=== PATIENT | female | born 1985 | race Caucasian/White ===

== ENCOUNTER 2016-12-08 06:09 | Emergency (ER) | payer MEDICAID ==
[~2016-12-08] VITALS: Ht 165.1 cm; Wt 68.0 kg
[2016-12-08 06:11] VITALS: BP 146/98; PULSE 84; RESP 15; TEMP 98.4; O2SAT 100
--- NOTE | 2016-12-08 07:00 | PD ---
HPI Chief Complaint: Oral / Dental Pain or Problem Time Seen by Provider: 07:00 Travel History International Travel<30 days: No Contact w/Intl Traveler<30days: No Traveled to known affect area: No History of Present Illness HPI 31-year-old female presents to the emergency Department with complaint of left lower tooth pain 5 days. Denies fever, vomiting. Pain is aggravated with eating and drinking. No known relieving factors. Has tried Tylenol. Allergies to penicillin and sulfa. Has no other medical complaints. No other modifying factors or associated signs and symptoms. PFSH Past Medical History ?: Not LMP: 11/15/16 Social History Tobacco Use: No Allergies-Medications (Allergen,Severity, Reaction): Coded Allergies: Penicillin (Verified Allergy, Unknown, 12/08/16) Sulfa (Verified Allergy, Unknown, 12/08/16) Reported Meds & Prescriptions Reported Meds & Active Scripts Active Peridex Liq (Chlorhexidine Gluconate (Mouth) Liq) 0.12% Soln 15 Ml SWISH-SPIT BID 10 Days Ibuprofen 800 Mg Tab 800 Mg PO Q6HR PRN Clindamycin (Clindamycin HCl) 150 Mg Cap 450 Mg PO Q6H 10 Days Review of Systems Except as stated in HPI: all other systems reviewed are Neg Physical Exam Narrative GENERAL: Well-nourished, well-developed female patient, in no acute distress; afebrile, nontoxic-appearing SKIN: Warm and dry. HEAD: Atraumatic. Normocephalic. No facial edema, erythema, tenderness on palpation. No lymphadenopathy. EYES: Pupils equal and round. No scleral icterus. No injection or drainage. ENT: Mucosa pink and moist. Airway patent. MOUTH: Mucous membranes moist, no lesions, tongue and gums appear normal. Left lower second molar with tenderness on palpation; dental cavity noted. Surrounding gingiva is without erythema, edema, drainage. No obvious abscess noted. NECK: Trachea midline. No lymphadenopathy. CARDIOVASCULAR: Regular rate. RESPIRATORY: No accessory muscle use. GASTROINTESTINAL: Flat. MUSCULOSKELETAL: No obvious deformities. No clubbing. No cyanosis. No edema. NEUROLOGICAL: Awake and alert. Oriented 3. No obvious cranial nerve deficits. Motor grossly within normal limits. Normal speech. PSYCHIATRIC: Appropriate mood and affect; insight and judgment normal. Data Data Last Documented VS Vital Signs Date Time Temp Pulse Resp B/P Pulse Ox O2 Delivery O2 Flow Rate FiO2 12/08/16 06:11 98.4 84 15 146/98 100 Room Air MDM Medical Decision Making Medical Screen Exam Complete: Yes Emergency Medical Condition: Yes Medical Record Reviewed: Yes Differential Diagnosis Dentalgia, dental abscess, gingivitis, infected dental cavity Narrative Course 31-year-old female today with dentalgia and dental cavities to left lower second molar. Patient is afebrile and nontoxic-appearing. No facial edema or erythema. Denies fever, vomiting. Allergic to penicillin and sulfa. Clindamycin, ibuprofen, Magic mouthwash prescribed for home. She'll provided with emergency dental information sheet for follow-up. Instructed patient to follow up with dentist. Patient verbalizes understanding and agreement with treatment plan. Patient is medically cleared and stable for discharge. Discussed reasons to return to the emergency department. Instructed patient to follow up with primary care provider. Patient agrees with treatment plan. The patients vital signs are stable and the patient is stable for outpatient follow- up and treatment. Patient discharged home, stable and in no acute distress. Diagnosis Primary Impression: Dentalgia Additional Impression: Dental cavities Referrals: Dentist Primary Care Physician Patient Instructions: Dental Abscess (ED), Dental Caries (DC), General Instructions, Toothache (ED) Departure Forms: Tests/Procedures, Work Release Enter return to work date: Dec 08, 2016 Additional Instructions: Complete full course of antibiotics Ibuprofen or Tylenol as directed and as needed to reduce pain and inflammation Use Peridex as directed for oral hygiene Warm or cool compresses to the affected area Follow-up with dentist Follow-up with primary care provider Return to emergency department immediately with worsening of symptoms Med/Other Pt SpecificInfo: Prescription(s) given Scripts Chlorhexidine Gluconate (Mouth) Liq (Peridex Liq)0.12% Soln15 Ml SWISH-SPIT BID 10 Days Ref 0 Prov:Crystal Murillo 12/08/16 Ibuprofen 800 Mg [id number] Mg PO Q6HR PRN (PAIN) #30 TAB Ref 0 Prov:Crystal Murillo 12/08/16 Clindamycin 150 Mg [id number] Mg PO Q6H 10 Days Ref 0 Prov:Crystal Murillo 12/08/16 Disposition: 01 DISCHARGE HOME Condition: Stable Crystal Murilol Dec 08, 2016 07:00
[2016-12-08] MEDS ORDERED: IBUP800T23 PO (07:02)
[2016-12-08] MEDS ORDERED: CLIN1CAP5 PO (07:02)
[2016-12-08] MEDS ORDERED: PERI0.126 SWISH-SPIT (07:02)
== END 2016-12-08 07:38 | disposition home or self-care (01) ==
LOC: NEPD 06:09
DX: K08.89 Other specified disorders of teeth and supporting structures (principal); K02.9 Dental caries, unspecified; Z88.0 Allergy status to penicillin; Z88.2 Allergy status to sulfonamides; Z79.899 Other long term (current) drug therapy
CPT/HCPCS: 99283

== ENCOUNTER 2017-02-06 13:10 | Emergency (ER) | payer MEDICAID ==
[~2017-02-06] VITALS: Ht 167.6 cm; Wt 66.0 kg
[~2017-02-06 13:10] MED LIST: CLIN1CAP5 PO; IBUP800T23 PO; PERI0.126 SWISH-SPIT
[2017-02-06 13:15] VITALS: BP 133/79; PULSE 72; RESP 20; TEMP 98.4; O2SAT 100
--- NOTE | 2017-02-06 13:19 | PD ---
Physical Exam Date Seen by Provider: Feb 06, 2017 Time Seen by Provider: 13:18 Narrative 31 yo female here for evaluation of pain to hands. History of carpal tunnel. 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 Dropping things. Burning and numbness. Pain is 6/10. Vitals are stable in triage. Awaiting bed placement. Data Data Last Documented VS Vital Signs Date Time Temp Pulse Resp B/P (MAP) Pulse Ox O2 Delivery O2 Flow Rate FiO2 02/06/17 13:15 98.4 72 20 133/79 (97) [address] [facility] Medical Record Reviewed: Yes Supervised Visit with [facility]: No Franky Joshi Feb 06, 2017 13:19
--- NOTE | 2017-02-06 13:47 | PD ---
HPI Chief Complaint: Pain: Acute or Chronic Time Seen by Provider: 13:46 Travel History International Travel<30 days: No Contact w/Intl Traveler<30days: No Traveled to known affect area: No History of Present Illness HPI 31 YO F with PMH of carpal tunnel syndrome presents to the ED for evaluation of 6/10 bilateral hand pain with tingling and burning. No acute injury. 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 States that she occasionally drops things. She's been treating by wrapping her wrists with Murray wraps. States pain is worse on the right. PFSH Past Medical History Musculoskeletal: Yes (carpal tunnel) ?: Not LMP: 01/15/17 Past Surgical History Surgical History: No Previous Surgery Social History Alcohol Use: No Tobacco Use: No Allergies-Medications (Allergen,Severity, Reaction): Coded Allergies: Sulfa (Sulfonamide Antibiotics) (Unverified Allergy, Unknown, 02/06/17) penicillin G (Unverified Allergy, Unknown, 02/06/17) Reported Meds & Prescriptions Reported Meds & Active Scripts Active Prednisone 20 Mg Tab 40 Mg PO DAILY 5 Days Take 40 mg (2 tablets) daily for 5 days Review of Systems Except as stated in HPI: all other systems reviewed are Neg Physical Exam Narrative GENERAL: Well-nourished, well-developed patient. SKIN: Focused skin assessment warm/dry. HEAD: Normocephalic. EYES: No scleral icterus. No injection or drainage. NECK: Supple, trachea midline. No JVD or lymphadenopathy. CARDIOVASCULAR: Regular rate and rhythm without murmurs, gallops, or rubs. RESPIRATORY: Breath sounds equal bilaterally. No accessory muscle use. GASTROINTESTINAL: Abdomen soft, non-tender, nondistended. MUSCULOSKELETAL: No cyanosis, or edema. FOCUSED RIGHT UPPER EXTREMITY EXAM: 2+ radial pulse. PATIENT HAS STRONG FINGER TO THUMB OPPOSITION ON EACH DIGIT. SHE MAINTAINS ACTIVE FLEXION AND EXTENSION OF THE WRIST. TINEL SIGN POSITIVE. SENSATION INTACT TO LIGHT TOUCH DISTALLY. CAP REFILL LESS THAN 2 SECONDS. FOCUSED LEFT UPPER EXTREMITY EXAM: 2+ radial pulse. Sharp finger to thumb opposition on each digit. Active flexion and extension of the wrist is maintained. Tinel sign positive. Sensation intact to light touch distally. Cap refill less than 2 seconds. BACK: Nontender without obvious deformity. No CVA tenderness. Data Data Last Documented VS Vital Signs Date Time Temp Pulse Resp B/P (MAP) Pulse Ox O2 Delivery O2 Flow Rate FiO2 02/06/17 14:34 02/06/17 13:15 98.4 72 20 100 Room Air Orders Orders Acetamin-Hydrocod 325-5 Mg ([place] 5-325 (02/06/17 14:00) Support Splint (02/06/17 13:57) Prednisone (Deltasone) (02/06/17 14:15) MDM Medical Decision Making Medical Screen Exam Complete: Yes Emergency Medical Condition: Yes Differential Diagnosis carpal tunnel syndrome versus acute on chronic pain versus less likely radiculopathy versus other Narrative Course 31 YO F with PMH of carpal tunnel syndrome presents to the ED for evaluation of 6/10 bilateral hand pain with tingling and burning. No acute injury. 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 States that she occasionally drops things. She's been treating by wrapping her wrists with Murray wraps. States pain is worse on the right. Vitals reviewed. Physical exam reveals a tearful white female in no acute distress. Vital signs positive bilaterally. Patient maintains strong finger to thumb opposition and good manager of financial reporting strength in each hand. She is prescribed prednisone 40 mg twice a day 5 days, first dose administered in the ED. She was provided wrist splints. She is instructed take the medication as prescribed, wear the wrist splints at night, follow up with Dr. Madera. She indicated understanding of instructions and is agreeable to the care plan. She is stable and discharged home. Diagnosis Primary Impression: Bilateral carpal tunnel syndrome Referrals: Berta Madera MD Patient Instructions: Carpal Tunnel Syndrome (DC), Carpal Tunnel Syndrome Exercises (GEN), General Instructions Departure Forms: Tests/Procedures, Work Release Enter return to work date: Feb 08, 2017 Additional Instructions: Rest, hydrate. Wear the velcro splints nightly. Take prednisone as prescribed. Follow up with the hand surgeon as discussed. Return to the ED for any urgent or emergent medical condition. Med/Other Pt SpecificInfo: Prescription(s) given Scripts Prednisone (Prednisone) 20 Mg Tab 40 MG PO DAILY for 5 Days, #10 TAB 0 Refills Take 40 mg (2 tablets) daily for 5 days Prov: Renetta Tay MD 02/06/17 Disposition: 01 DISCHARGE HOME Condition: Stable Kat Miller Feb 06, 2017 13:47
[2017-02-06] MEDS ORDERED: ACETAMINOPHEN/HYDROcodone 325 MG/5 MG TAB PO ONE (14:00)
[2017-02-06] MEDS ORDERED: PRED20 PO (14:04)
[2017-02-06] MEDS ORDERED: predniSONE 20 MG TAB PO ONE (14:15)
[2017-02-06] MEDS ORDERED: predniSONE 20 MG TAB PO SCH (18:00)
== END 2017-02-06 14:34 | disposition home or self-care (01) ==
LOC: NEPA 13:10
DX: G56.03 Carpal tunnel syndrome, bilateral upper limbs (principal)
CPT/HCPCS: 99283; J7512; L3908